=== PATIENT | male | born 1940 | race Caucasian/White ===

== ENCOUNTER 2017-10-12 16:38 | Inpatient (IN) | payer MEDICARE, BC ==
[~2017-10-12] VITALS: Ht 177.8 cm; Wt 120.5 kg
[~2017-10-12 16:38] MED LIST: ASPIRIN 81M81 MG/TA2 PO; FLEXERIL 1010 MG/TAB PO; GLUCOSAMINE PO; HCTZ 25MG TAB25 MG PO; LORTAB 5/500 501 TAB PO; MULTIPLE VITAMI1 CAP PO; OMEGA-3 FISH1200 MG; TOPROL XL 50MG50 MG PO
[2017-10-12 17:50] LABS: BASO % 0.4 % (0.0-2.0); EOS # 0.1 (0.0-0.7); EOS % 1.6 % (0-4.0); GRAN # 4.9 (1.4-6.5); GRAN % 70.8 % (42.2-75.2); HEMATOCRIT 48.6 % (42.0-52.0); HEMOGLOBIN 15.9 g/dl (13.5-18.0); LYMPH # 1.1 (1.2-3.4); LYMPH % 16.6 % (20.0-51.0); MEAN CELL VOLUME 96 fl (80.0-100.0); MEAN CORPUSCULAR HEMOGLOBIN 31 pg (27.0-31.0); MEAN CORPUSCULAR HGB CONC 33 g/dl (33.0-37.0); MEAN PLATELET VOLUME 11.3 fl (7.4-10.4); MONO # 0.7 (0.1-0.6); MONO % 10.2 % (1.7-9.3); PLATELET COUNT 106 K/mm3 (130-400); RED BLOOD COUNT 5.08 M/mm3 (4.20-5.60); REDCELL DISTRIBUTION WIDTH-CV 13.1 % (11.5-14.5)
[2017-10-12 17:56] LABS: ALBUMIN 4.4 gm/dL (3.5-5.0); BILIRUBIN,TOTAL 0.8 mg/dL (0.0-1.0); CALCIUM 8.6 mg/dL (8.4-10.2); CREATININE, serum 1.26 mg/dL (0.66-1.25); POTASSIUM 3.3 mmol/L (3.4-5.0); TOTAL PROTEIN 7.8 gm/dL (6.4-8.2)
[2017-10-12 18:11] LABS: TROPONIN-I 0.044 ng/mL (0.000-0.034)
[2017-10-12] MEDS ORDERED: ZYLOPRIM 100MG100 MG PO (19:11)
[2017-10-12] MEDS ORDERED: VITAMIND3 5000 (19:11)
[2017-10-12] MEDS ORDERED: GLUCOPHAGE850 MG/TAB PO (19:13)
[2017-10-12] MEDS ORDERED: NATURAL ODORLE400 MG PO (19:13)
[2017-10-12] MEDS ORDERED: CRESTOR5 MG PO (19:13)
[2017-10-12] MEDS ORDERED: XALATAN EYE DROPS OU (19:14)
[2017-10-12 21:08] VITALS: BP 129/65; PULSE 76; TEMP 97.3
[2017-10-12] MEDS ORDERED: EPA FISH OIL1 SGL PO (21:39)
[2017-10-12] MEDS ORDERED: GLUCOSAMINE/CHO1 CA4 PO (21:42)
[2017-10-12] MEDS ORDERED: DAILY MULTIPLE1 T19 PO (21:44)
[2017-10-12 23:45] VITALS: BP 124/64; PULSE 72; TEMP 97.9
[2017-10-13] VITALS (7 sets, daily range): BP systolic 117–135; BP diastolic 44–84; PULSE 73–98; TEMP 98.2–98.3
[2017-10-13 00:55] LABS: INR 1.1 (0.8-3.0); PROTHROMBIN TIME 13.1 SECONDS (9.7-12.8)
[2017-10-13 05:38] LABS: ARTERIAL BLD GAS O2 SATURATION 91.3 % (92-100); ARTERIAL BLD GAS TCO2 CT 37.6; ARTERIAL BLOOD GAS BASE EXCESS 7.6 (-2-2); ARTERIAL BLOOD GAS HCO3 35.6 meq/L (22-26); ARTERIAL BLOOD GAS PCO2 64.3 mmHg (35-45); ARTERIAL BLOOD GAS PO2 64.7 mmHg (80-100); ARTERIAL BLOOD GAS pH 7.36 (7.35-7.45)
[2017-10-13 06:32] LABS: BASO % 0.5 % (0.0-2.0); EOS # 0.2 (0.0-0.7); EOS % 2.6 % (0-4.0); GRAN # 4.3 (1.4-6.5); GRAN % 68.3 % (42.2-75.2); HEMATOCRIT 44.4 % (42.0-52.0); HEMOGLOBIN 14.8 g/dl (13.5-18.0); LYMPH % 16.6 % (20.0-51.0); MEAN CELL VOLUME 97 fl (80.0-100.0); MEAN CORPUSCULAR HEMOGLOBIN 32 pg (27.0-31.0); MEAN CORPUSCULAR HGB CONC 33 g/dl (33.0-37.0); MONO # 0.7 (0.1-0.6); MONO % 11.8 % (1.7-9.3); PLATELET COUNT 126 K/mm3 (130-400); RED BLOOD COUNT 4.57 M/mm3 (4.20-5.60); REDCELL DISTRIBUTION WIDTH-CV 13.2 % (11.5-14.5)
[2017-10-13 08:22] LABS: CHOLESTEROL RISK RATIO 5.5; CREATININE, serum 1.05 mg/dL (0.66-1.25); POTASSIUM 3.3 mmol/L (3.4-5.0)
[2017-10-13 08:40] LABS: TROPONIN-I 0.047 ng/mL (0.000-0.034)
[2017-10-14 00:44] VITALS: BP 124/54; BP 169/56; PULSE 65; PULSE 88; TEMP 98.8
[2017-10-14 03:31] VITALS: BP 122/64; PULSE 78; TEMP 98.4
[2017-10-14 07:17] LABS: GRAN # 4.4 (1.4-6.5); GRAN % 74.8 % (42.2-75.2); HEMATOCRIT 42.3 % (42.0-52.0); HEMOGLOBIN 13.6 g/dl (13.5-18.0); LYMPH # 0.9 (1.2-3.4); LYMPH % 15.3 % (20.0-51.0); MEAN CELL VOLUME 98 fl (80.0-100.0); MEAN CORPUSCULAR HEMOGLOBIN 31 pg (27.0-31.0); MEAN CORPUSCULAR HGB CONC 32 g/dl (33.0-37.0); MEAN PLATELET VOLUME 11.5 fl (7.4-10.4); MONO # 0.6 (0.1-0.6); MONO % 9.6 % (1.7-9.3); PLATELET COUNT 94 K/mm3 (130-400); RED BLOOD COUNT 4.33 M/mm3 (4.20-5.60)
[2017-10-14 07:20] LABS: INR 1.2 (0.8-3.0); PROTHROMBIN TIME 13.6 SECONDS (9.7-12.8)
[2017-10-14 07:30] LABS: CREATININE, serum 0.96 mg/dL (0.66-1.25); POTASSIUM 3.2 mmol/L (3.4-5.0)
[2017-10-14 08:48] VITALS: BP 115/68; PULSE 83; TEMP 97.8
[2017-10-14 12:04] VITALS: BP 122/61; PULSE 82; TEMP 98.4
[2017-10-14 16:13] VITALS: BP 117/64; PULSE 84; TEMP 98
[2017-10-14 20:04] VITALS: BP 140/75; PULSE 96; TEMP 98.3
[2017-10-15 00:46] VITALS: BP 127/85; PULSE 87; TEMP 98.6
[2017-10-15 03:30] VITALS: BP 133/95; PULSE 82; TEMP 98.4
[2017-10-15 07:45] LABS: BASO % 0.2 % (0.0-2.0); EOS # 0.1 (0.0-0.7); GRAN # 6.4 (1.4-6.5); GRAN % 73.5 % (42.2-75.2); HEMATOCRIT 39.1 % (42.0-52.0); HEMOGLOBIN 12.7 g/dl (13.5-18.0); LYMPH # 1.4 (1.2-3.4); LYMPH % 16.4 % (20.0-51.0); MEAN CELL VOLUME 98 fl (80.0-100.0); MEAN CORPUSCULAR HEMOGLOBIN 32 pg (27.0-31.0); MEAN CORPUSCULAR HGB CONC 33 g/dl (33.0-37.0); MEAN PLATELET VOLUME 11.7 fl (7.4-10.4); MONO # 0.7 (0.1-0.6); MONO % 8.4 % (1.7-9.3); PLATELET COUNT 99 K/mm3 (130-400); RED BLOOD COUNT 4.01 M/mm3 (4.20-5.60)
[2017-10-15 07:47] LABS: INR 1.2 (0.8-3.0); PROTHROMBIN TIME 14.1 SECONDS (9.7-12.8)
[2017-10-15 08:03] LABS: CALCIUM 7.6 mg/dL (8.4-10.2); CREATININE, serum 0.88 mg/dL (0.66-1.25); MAGNESIUM 2.1 mg/dL (1.6-2.3); PHOSPHOROUS 1.9 mg/dL (2.5-4.5); POTASSIUM 3.4 mmol/L (3.4-5.0)
[2017-10-15 08:07] VITALS: BP 96/52; PULSE 88; TEMP 97.9
[2017-10-15 09:40] VITALS: BP 114/63
[2017-10-15 11:55] VITALS: BP 114/57; PULSE 84; TEMP 98.2
[2017-10-15] MEDS ORDERED: TAMIFLU 75MG75 MG PO (14:17)
[2017-10-15] MEDS ORDERED: COUMADIN4 MG PO (14:17)
[2017-10-15] MEDS ORDERED: HCTZ12.5TAB PO (14:18)
[2017-10-15] MEDS ORDERED: LOVENOX120 MG/0.8 SQ (14:20)
== END 2017-10-15 15:30 | disposition home or self-care (01) | DRG 194 ==
LOC: COL.ER 16:38 → MEDICAL 19:46
PROVIDERS: Emergency Medicine; Internal Medicine; Nurse Practitioner; Physician Assistant
PROC: 5A2204Z Restoration of Cardiac Rhythm, Single (ICD-10-PCS; principal; 2017-10-13)
DX: J09.X2 Influenza due to identified novel influenza A virus with other respiratory manifestations (principal); I48.92 Unspecified atrial flutter; N17.9 Acute kidney failure, unspecified; E87.1 Hypo-osmolality and hyponatremia; I48.0 Paroxysmal atrial fibrillation; I10 Essential (primary) hypertension; E87.6 Hypokalemia; E86.0 Dehydration; E11.9 Type 2 diabetes mellitus without complications; Z95.2 Presence of prosthetic heart valve
CPT/HCPCS: 99222-AI; 99232-AI; 99239; G0378; G9654; J1650; J1815; J1940; J2704; J7030; J7512

== ENCOUNTER → 2017-10-21 | Outpatient (CLI) | payer MEDICARE, BC ==
[~2017-10-21] MED LIST changes: +CORDARONE200 MG/TAB PO; +COUMADIN4 MG PO; +CRESTOR5 MG PO; +DAILY MULTIPLE1 T19 PO; +EPA FISH OIL1 SGL PO; +FERROUS SU325 MG/TAB PO; +GLUCOPHAGE850 MG/TAB PO; +GLUCOSAMINE/CHO1 CA4 PO; +HCTZ12.5TAB PO; +LOVENOX120 MG/0.8 SQ; +NATURAL ODORLE400 MG PO; +PRIL40 PO; +TAMIFLU 75MG75 MG PO; +VITAMIND3 5000; +XALATAN EYE DROPS OU; +ZYLOPRIM 100MG100 MG PO
[2017-10-21 11:23] LABS: MEAN CELL VOLUME 99 fl (80.0-100.0); MEAN CORPUSCULAR HGB CONC 32 g/dl (33.0-37.0); MEAN PLATELET VOLUME 10.1 fl (7.4-10.4); PLATELET COUNT 201 K/mm3 (130-400); RED BLOOD COUNT 2.43 M/mm3 (4.20-5.60); REDCELL DISTRIBUTION WIDTH-CV 15.4 % (11.5-14.5)
[2017-10-21 11:24] LABS: HEMATOCRIT 24.1 % (42.0-52.0); HEMOGLOBIN 7.8 g/dl (13.5-18.0); MEAN CORPUSCULAR HEMOGLOBIN 32 pg (27.0-31.0)
== END ==
LOC: COL.LAB 10:52
PROVIDERS: Family Medicine
DX: D64.9 Anemia, unspecified (principal)

== ENCOUNTER 2017-11-23 11:09 | Day surgery (SDC) | payer MEDICARE, BC ==
[~2017-11-23] VITALS: Ht 177.8 cm; Wt 121.9 kg
[~2017-11-23 11:09] MED LIST changes: +MASON NATURAL2000 IU PO; -VITAMIND3 5000
[2017-11-23 12:03] LABS: HEMATOCRIT 37.3 % (42.0-52.0); HEMOGLOBIN 11.6 g/dl (13.5-18.0); MEAN CELL VOLUME 100 fl (80.0-100.0); MEAN CORPUSCULAR HEMOGLOBIN 31 pg (27.0-31.0); MEAN CORPUSCULAR HGB CONC 31 g/dl (33.0-37.0); MEAN PLATELET VOLUME 10.4 fl (7.4-10.4); PLATELET COUNT 209 K/mm3 (130-400); RED BLOOD COUNT 3.74 M/mm3 (4.20-5.60); REDCELL DISTRIBUTION WIDTH-CV 15.6 % (11.5-14.5)
[2017-11-23 12:12] LABS: CALCIUM 8.9 mg/dL (8.4-10.2); CREATININE, serum 1.35 mg/dL (0.66-1.25); POTASSIUM 3.8 mmol/L (3.4-5.0)
[2017-11-23 12:13] LABS: INR 2.9 (0.8-3.0)
[2017-11-23 12:38] VITALS: BP 161/78; PULSE 69; TEMP 97.9
[2017-11-23] MEDS ORDERED: PACERONE200 MG PO (12:43)
[2017-11-23] MEDS ORDERED: ASPIRIN E.C. 8181 MG PO (12:47)
[2017-11-23] MEDS ORDERED: HYDRODIURIL50 MG PO (12:48)
[2017-11-23] MEDS ORDERED: OSTEO-BI-FLEX 21 TAB PO (12:49)
[2017-11-23] MEDS ORDERED: MASON NATURAL500 MG PO (12:49)
[2017-11-23] MEDS ORDERED: NITROSTAT0.4 MG/TAB SL (12:50)
[2017-11-23] MEDS ORDERED: COUMADIN 5MG5 MG/TAB PO (12:50)
[2017-11-23] MEDS ORDERED: CRESTOR 10MG10 MG PO (12:51)
[2017-11-23 13:42] VITALS: BP 125/70; PULSE 85
[2017-11-23 13:45] VITALS: BP 115/75; PULSE 93
[2017-11-23 14:00] VITALS: BP 135/76; PULSE 86
[2017-11-23 14:15] VITALS: BP 137/72; PULSE 91
[2017-11-23 14:30] VITALS: BP 131/76; PULSE 86
== END 2017-11-23 16:14 | disposition home or self-care (01) ==
LOC: COL.CAR 11:09
PROVIDERS: Internal Medicine Cardiovascular Disease
DX: I48.0 Paroxysmal atrial fibrillation (principal); I48.92 Unspecified atrial flutter; I07.1 Rheumatic tricuspid insufficiency; I10 Essential (primary) hypertension; E78.5 Hyperlipidemia, unspecified; I25.10 Atherosclerotic heart disease of native coronary artery without angina pectoris; G47.33 Obstructive sleep apnea (adult) (pediatric); M19.90 Unspecified osteoarthritis, unspecified site; E11.9 Type 2 diabetes mellitus without complications; D64.9 Anemia, unspecified; Z95.2 Presence of prosthetic heart valve; Z79.01 Long term (current) use of anticoagulants; Z79.84 Long term (current) use of oral hypoglycemic drugs; Z82.49 Family history of ischemic heart disease and other diseases of the circulatory system
CPT/HCPCS: G9654; J7030

== ENCOUNTER 2018-01-19 07:57 | Outpatient (CLI) | payer MEDICARE, BC ==
[~2018-01-19] VITALS: Ht 177.8 cm; Wt 117.2 kg
[~2018-01-19 07:57] MED LIST changes: +ASPIRIN E.C. 8181 MG PO; +CRESTOR 10MG10 MG PO; +HYDRODIURIL50 MG PO; +MASON NATURAL500 MG PO; +NITROSTAT0.4 MG/TAB SL; +OSTEO-BI-FLEX 21 TAB PO; +PACERONE200 MG PO
[2018-01-19 08:44] VITALS: BP 149/78; PULSE 65; TEMP 97.9
[2018-01-19] MEDS ORDERED: LASIX 40MG TABL40 MG PO (09:04)
[2018-01-19] MEDS ORDERED: LASIX 20MG TABL20 MG PO (09:05)
[2018-01-19 09:53] VITALS: BP 135/78; PULSE 64; TEMP 97.9
== END 2018-01-19 09:56 | disposition home or self-care (01) ==
LOC: COL.CAR 07:57
DX: I48.0 Paroxysmal atrial fibrillation (principal); I35.1 Nonrheumatic aortic (valve) insufficiency; I10 Essential (primary) hypertension; R60.9 Edema, unspecified; E78.5 Hyperlipidemia, unspecified; I48.92 Unspecified atrial flutter; Z95.2 Presence of prosthetic heart valve; Z79.84 Long term (current) use of oral hypoglycemic drugs; Z79.01 Long term (current) use of anticoagulants; Z82.49 Family history of ischemic heart disease and other diseases of the circulatory system
CPT/HCPCS: 27124; C1764

== ENCOUNTER → 2018-06-14 | Outpatient (CLI) | payer MEDICARE, BC ==
[~2018-06-14] MED LIST changes: +LASIX 20MG TABL20 MG PO; +LASIX 40MG TABL40 MG PO
== END ==
LOC: COL.RAD 12:48
DX: R06.02 Shortness of breath (principal); Z98.890 Other specified postprocedural states; Z98.82 Breast implant status

== ENCOUNTER 2021-02-11 05:49 | Day surgery (SDC) | payer MEDICARE, BC ==
[~2021-02-11] VITALS: Ht 177.8 cm; Wt 127.1 kg
[2021-02-11] VITALS (15 sets, daily range): BP systolic 134–157; BP diastolic 57–76; PULSE 73–91; TEMP 97.6–98.8
[~2021-02-11 05:49] MED LIST changes: -DAILY MULTIPLE1 T19 PO; +MULTI-VITAMIN W1 TA1 PO
[2021-02-11 06:29] LABS: HEMATOCRIT 42.2 % (42.0-52.0); HEMOGLOBIN 13.7 g/dl (13.5-18.0); MEAN CELL VOLUME 97 fl (80.0-100.0); MEAN CORPUSCULAR HEMOGLOBIN 31 pg (27.0-31.0); MEAN CORPUSCULAR HGB CONC 33 g/dl (33.0-37.0); PLATELET COUNT 109 K/mm3 (130-400); RED BLOOD COUNT 4.36 M/mm3 (4.20-5.60); REDCELL DISTRIBUTION WIDTH-CV 14.3 % (11.5-14.5)
[2021-02-11] MEDS ORDERED: ASPIRIN E.C. 8181 MG PO (06:30)
[2021-02-11] MEDS ORDERED: NATURE'S BLEND600 M2 PO (06:30)
[2021-02-11] MEDS ORDERED: THE MEDICINE S200 M2 PO (06:30)
[2021-02-11] MEDS ORDERED: CRANBERRY FRUI425 MG PO (06:31)
[2021-02-11] MEDS ORDERED: MASON NATURAL1200 MG PO (06:31)
[2021-02-11] MEDS ORDERED: NATURAL ODORLE400 MG PO (06:32)
[2021-02-11] MEDS ORDERED: NEURONTIN100 MG/CAP PO (06:32)
[2021-02-11] MEDS ORDERED: OSTEO-BI-FLEX 21 TAB PO (06:33)
[2021-02-11] MEDS ORDERED: CRESTOR 10MG10 MG PO (06:34)
[2021-02-11] MEDS ORDERED: PHARMASSURE ZIN50 MG PO (06:35)
[2021-02-11] MEDS ORDERED: TURMERIC500 MG PO (06:35)
[2021-02-11 06:41] LABS: CALCIUM 8.4 mg/dL (8.4-10.2); CREATININE, serum 1.07 (0.66-1.25); POTASSIUM 4.1 mmol/L (3.4-5.0)
[2021-02-11 07:41] LABS: INR 1.2 (0.8-3.0); PROTHROMBIN TIME 12.9 SECONDS (9.7-12.8)
--- NOTE | 2021-02-11 08:32 | NUR ---
SEE MERGE FOR ALL MEDICATION ADMINISTRATION TIMES, INTRA AND POST SEDATION ASSESSMENTS
--- NOTE | 2021-02-11 18:45 | NUR ---
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 TWO DRESSING NOTED TO THE LEFT UPPER CHEST. SLIGHT BLOOD NOTED TO THE DRESSING. PT EDUCATED THAT HE NEEDS TO KEEP HIS LEFT ARM IN A SLING AND ICE IN PLACE EVERY OTHER HOUR WHILE AWAKE. PT DENIES PAIN. VS STABLE. COMFORT MEASURES IN PLACE. ADMISSION COMPLETED.
--- NOTE | 2021-02-11 19:30 | NUR ---
Received report from [facility]. Patient awake sitting in the recliner. With arm sling on left arm. Dressing on left chest is CDI. He is on O2 at 2lpm via [place]. Ice pack placed on left chest. He reports site as sore but not painful.
[2021-02-12 00:04] VITALS: BP 130/64; PULSE 59; TEMP 97.9
[2021-02-12 04:18] VITALS: BP 137/65; PULSE 60; TEMP 97.9
--- NOTE | 2021-02-12 06:13 | NUR ---
Patient slept well over the night. Left arm remains in arm sling. Left upper chest pace maker placement site dressing C/D/I. No acute distress noted throughout the night. Assisted patient to use bathroom to void. Stand-by assist provided. Patient sitting up in the chair at this time. Ice water provided per patient request. Call light within reach. Patient denies further needs.
[2021-02-12 06:59] LABS: BASO % 0.3 % (0.0-2.0); EOS # 0.2 (0.0-0.7); EOS % 2.7 % (0-4.0); GRAN # 6.5 (1.4-6.5); GRAN % 72.9 % (42.2-75.2); HEMATOCRIT 42.7 % (42.0-52.0); HEMOGLOBIN 13.7 g/dl (13.5-18.0); LYMPH # 1.4 (1.2-3.4); MEAN CELL VOLUME 98 fl (80.0-100.0); MEAN CORPUSCULAR HEMOGLOBIN 31 pg (27.0-31.0); MEAN CORPUSCULAR HGB CONC 32 g/dl (33.0-37.0); MEAN PLATELET VOLUME 11.5 fl (7.4-10.4); MONO # 0.8 (0.1-0.6); MONO % 8.7 % (1.7-9.3); PLATELET COUNT 95 K/mm3 (130-400); RED BLOOD COUNT 4.38 M/mm3 (4.20-5.60); REDCELL DISTRIBUTION WIDTH-CV 14.1 % (11.5-14.5)
[2021-02-12 07:15] LABS: CALCIUM 8.4 mg/dL (8.4-10.2); CREATININE, serum 1.06 (0.66-1.25); MAGNESIUM 2.1 mg/dL (1.6-2.3); POTASSIUM 4.1 mmol/L (3.4-5.0)
[2021-02-12 08:36] VITALS: BP 134/61; PULSE 78; TEMP 98.5
[2021-02-12 10:01] LABS: ARTERIAL BLD GAS TCO2 CT 33.8; ARTERIAL BLOOD GAS BASE EXCESS 4.6 (-2-2); ARTERIAL BLOOD GAS PCO2 58.8 mmHg (35-45); ARTERIAL BLOOD GAS PO2 82.1 mmHg (80-100); ARTERIAL BLOOD GAS pH 7.35 (7.35-7.45)
--- NOTE | 2021-02-12 10:10 | NUR ---
Initial visit; Patient thanked Change Of Address Clerk for looking in on him and offering God's blessings and keeping him in Change Of Address Clerk's prayers.
[2021-02-12 11:57] VITALS: BP 124/59; PULSE 60; TEMP 97.6
[2021-02-12] MEDS ORDERED: CEPHALEXIN500 M1 PO (12:06)
[2021-02-12] MEDS ORDERED: ZEBETA 5MG5 MG PO (12:07)
[2021-02-12] MEDS ORDERED: FLONASEALLERGY NS (12:09)
--- NOTE | 2021-02-12 14:30 | NUR ---
PT BEING DISCHARGE AT THIS TIME. NO S/S OF DISTRESS NOTED. DISCHARGE INSTRUCTIONS REVIEWED WITH PT AND HE VERBALIZES THAT HE UNDERSTANDS. IV ACCESS DISCONTINUED. PT TOOK ALL HIS BELONGINGS. INCISION CARE REVIEWED. SPOUSE AT THE BEDSIDE, NO CONCERNS VOICED. PT TRANSFERRED TO SPOUSE VEHICLE VIA W/C.
== END 2021-02-12 14:37 | disposition home or self-care (01) ==
LOC: COL.CAR 05:49 → MEDICAL 10:25 → COL.CAR 02-12 14:37
PROVIDERS: Internal Medicine Cardiovascular Disease
DX: I49.5 Sick sinus syndrome (principal); I48.0 Paroxysmal atrial fibrillation; I10 Essential (primary) hypertension; Z95.2 Presence of prosthetic heart valve; G47.33 Obstructive sleep apnea (adult) (pediatric); E78.5 Hyperlipidemia, unspecified; Z79.82 Long term (current) use of aspirin; Z79.899 Other long term (current) drug therapy; Z79.84 Long term (current) use of oral hypoglycemic drugs
CPT/HCPCS: OP; C1785; C1894; C1898; J0690; J1940; J2250; J3010; J7030; Q9967

== ENCOUNTER → 2023-07-20 | Outpatient (RCR) | payer MEDICARE, BC ==
[~2023-07-20] MED LIST changes: +CEPHALEXIN500 M1 PO; +CRANBERRY FRUI425 MG PO; +ELDERBERRY; +FLONASE NASAL S16 GM NS; +FLONASEALLERGY NS; +GLUCOPHAGE500 MG/TAB PO; -GLUCOPHAGE850 MG/TAB PO; +KERENDIA10 MG PO; +MASON NATURAL1200 MG PO; +NATURE'S BLEND600 M2 PO; +NEURONTIN100 MG/CAP PO; +PEPCID 20MG TAB20 MG PO; +PHARMASSURE ZIN50 MG PO; +PLAVIX 75MG TAB75 MG PO; +THE MEDICINE S200 M2 PO; +TURMERIC500 MG PO; +XALATAN EYE DROPS OP; +ZEBETA 5MG5 MG PO
== END | disposition home or self-care (01) ==
LOC: COL.CR
DX: J98.4 Other disorders of lung (principal)
CPT/HCPCS: G0239